=== PATIENT | female | born 1975 | race Caucasian/White ===

== ENCOUNTER → 2020-04-26 | Outpatient (CLI) | payer BC, OTHER ==
[~2020-04-26] MED LIST: ADULT ONE DAI200 MCG PO; CALCIUM500 M1 PO; IBUPROFEN 600600 M1 PO; IRON325 PO; NORCO 5-325 TA1 EACH PO; VITAMIN B-1100 M2 PO
== END ==
LOC: ULTRA 14:49
PROVIDERS: ATTEND Family Medicine
DX: K76.0 Fatty (change of) liver, not elsewhere classified (principal)

== ENCOUNTER → 2020-05-30 | Outpatient (CLI) | payer BC, OTHER | LOC: ULTRA 15:42 | PROVIDERS: ATTEND Family Medicine | DX: M79.89 Other specified soft tissue disorders (principal) ==

== ENCOUNTER → 2020-08-31 | Outpatient (CLI) | payer BC, OTHER ==
[~2020-08-31] MED LIST changes: +FIBER0.52 G1 PO; +MILI 0.25-0.031 EACH PO; +OMEPRAZOLE 20 M20 M1 PO
== END ==
LOC: LAB 10:40
PROVIDERS: ATTEND Internal Medicine Gastroenterology
DX: Z01.812 Encounter for preprocedural laboratory examination (principal); Z20.822 Contact with and (suspected) exposure to COVID-19

== ENCOUNTER → 2020-09-05 | Outpatient (CLI) | payer BC, OTHER ==
[~2020-09-05] VITALS: Ht 170.2 cm; Wt 111.1 kg
--- NOTE | 2020-09-07 18:06 | PATH ---
[facility] [place] [address] PATHOLOGY RPT PROCEDURE Name: ROX GRUBER Room #: REG CLAUDINE Swann.#: [id number] Admission: 09/05/20 Date of : 75 Discharge: Report #: [id number] Path Case #: [id number] [facility] Accession Number: [id number] . 01 Material submitted: . PART A: gastrointestinal site - RANDOM GASTRIC BIOPSY PART B: esophagus - RANDOM ESOPHAGEAL BIOPSY . 01 Clinical history: . DTS/EGD/NON INTRACTABLE VOMITING WITHOUT NAUSEA FOR A- RULE OUT H. PYLORI FOR B- RULE OUT EOSINAPHUS ESOPHAGUS . 02 Diagnosis: A. Gastric mucosa, random gastric, endoscopic biopsy: - Mild reactive gastropathy. - Negative for intestinal metaplasia or atrophy. - Negative for Helicobacter pylori (properly controlled immunohistochemical stain performed). . B. Squamous mucosa, random esophageal, endoscopic biopsy: - Mild active esophagitis. - No increase in eosinophils within the mucosa. - Negative for intestinal metaplasia or dysplasia. (IUV/db; 09/07/2020) [facility] 09/07/2020 1340 Local . 02 Electronically signed: . Cathy Bolton MD, Pathologist NPI- [id number] . 01 Gross description: . A. The specimen is received in formalin, labeled "Rox Gruber", "random gastric biopsy rule out H. pylori". Received are multiple segments of pale prado soft tissue ranging in size from 0.2 cm to 0.3 cm. The specimen is entirely submitted in cassette A1. . B. The specimen is received in formalin, labeled "Rox Gruber", "random esophageal biopsy rule out eosinophilic esophagitis". Received are multiple segments of pale white soft tissue ranging in size from 0.1 cm to 0.2 cm. The specimen is entirely submitted in cassette B1.([facility]; 09/06/2020) [facility] 09/06/2020 [facility] Local . 02 Pathologist provided ICD-10: K20.90 . [address] [address] PATHOLOGY RPT PROCEDURE Name: ROX GRUBER Room #: REG Rhonda Montoya#: [id number] Admission: 09/05/20 Date of : 75 Discharge: Report #: [id number] Path Case #: [id number] [facility] . [id number], [id number], [id number] Specimen Comment: A courtesy copy of this report has been sent to [phone] Specimen Comment: [phone] Specimen Comment: Report sent to / DR NEVAREZ Performed at: [address], [place] [id number] MD Francisco Brian MD Phone: [phone] Performed at: [address] [id number] MD Cathy Bolton MD Phone: [phone]
== END | disposition home or self-care (01) ==
LOC: GI 06:58
PROVIDERS: ATTEND Internal Medicine Gastroenterology
DX: R10.13 Epigastric pain (principal); R13.19 Other dysphagia; K31.9 Disease of stomach and duodenum, unspecified; K21.00 Gastro-esophageal reflux disease with esophagitis, without bleeding; Z98.890 Other specified postprocedural states; Z79.899 Other long term (current) drug therapy; Z88.2 Allergy status to sulfonamides
CPT/HCPCS: 62110; 62900